=== PATIENT | male | born 1980 | race Caucasian/White ===

== ENCOUNTER 2022-07-14 11:57 | Outpatient (CLI) | payer BC, SELFPAY | END 2022-07-14 11:58 | disposition home or self-care (01) | LOC: AMB 07-18 11:02 | PROVIDERS: Visit Provider Internal Medicine | DX: F31.9 Bipolar disorder, unspecified (principal) | CPT/HCPCS: A0425; A0427 ==

== ENCOUNTER 2022-07-14 12:51 | Emergency (ER) | payer BC, SELFPAY ==
[2022-07-14] VITALS (28 sets, daily range): BP systolic 111–137; BP diastolic 68–107; PULSE 72–109; RESP 10–20; TEMP 36.7; O2SAT 81–99; BMI 31.0
[2022-07-14] MEDS: LORazepam 2 MG/ML inj 0.5 MG IVP (12:58)
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
[2022-07-14 13:30] LABS: Basophils Absolute Auto 0.02 K/uL (0.00-0.30); Basophils Percent Auto 0.4 % (0.0-3.0); Eosinophils Absolute Auto 0.15 K/uL (0.00-0.50); Eosinophils Percent Auto 2.8 % (0.0-7.0); Hematocrit 45.9 % (37.0-53.0); Hemoglobin* 15.2 gm/dL (13.5-17.5); Immature Granulocytes Abs Auto 0.04 K/uL (0.00-0.30); Immature Granulocytes Pct Auto 0.7 %; Lymphocytes Absolute Auto 1.75 K/uL (0.90-2.90); Lymphocytes Percent Auto 32.4 % (20-44); Mean Corpuscular HGB Conc 33 gm/dL (32-36); Mean Corpuscular Hemoglobin 27 pg (26-34); Mean Corpuscular Volume 82 fL (80-100); Monocytes Percent Auto 9.3 % (0.0-11.0); Neutrophils Absolute Auto 2.94 K/uL (1.7-7.0); Neutrophils Percent Auto 54.4 % (42.0-72.0); Platelet Count* 189 K/uL (140-440); Red Blood Count 5.58 m/uL (4.30-5.90)
[2022-07-14 13:34] LABS: Slide Review Reflex No
[2022-07-14 13:35] LABS: Albumin* 4.6 g/dL (3.3-5.0); Chloride* 105 mmol/L (96-114)
[2022-07-14 13:36] LABS: Potassium* 3.7 mmol/L (3.6-5.1); Sodium* 138 mmol/L (135-149)
[2022-07-14 13:38] LABS: Alanine Aminotransferase* 54 U/L (4-50); Alkaline Phosphatase* 120 U/L (40-150); Aspartate Amino Transferase* 41 U/L (12-35); Bilirubin Total* 0.6 mg/dL (0.1-1.5); Blood Urea Nitrogen* 15 mg/dL (5-24); Carbon Dioxide* 24 mmol/L (20-32); Creatinine* 0.7 mg/dL (0.5-1.5); Est. Creatinine Clearance* 140.28; Estimated Glomerular Filt Rate 119 ml/min; Glucose* 137 mg/dL (60-115); Total Protein* 7.8 g/dL (6.0-8.3)
[2022-07-14 13:39] LABS: Calcium* 9.2 mg/dL (8.4-10.6)
[2022-07-14 13:41] LABS: Acetaminophen* < 10.0 ug/mL (10.0-30.0); Ethanol* < 0.01 % (0.01-0.03); Salicylate* < 1.0 mg/dL (1.0-10)
[2022-07-14] MEDS: 0.9 % SODIUM CHLORIDE 1000 ml 1,000 ML IV (13:48)
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
[2022-07-14 14:55] LABS: Appearance Urine Clear (Clear); Bilirubin Urine Negative (Negative); Blood Urine Negative (Negative); Color Urine Yellow (Yellow); Glucose Urine Negative (Negative); Ketones Urine Negative (Negative); Leukocyte Esterase Urine Negative (Negative); Nitrite Urine Negative (Negative); Protein Urine Negative (Negative); Specific Gravity Urine 1.025 (1.000-1.030); Urobilinogen Urine 0.2 (0.2-1.0)
[2022-07-14 14:59] LABS: Amphetamine Screen Urine Negative (Negative); Barbiturate Screen Urine Negative (Negative); Benzodiazepines Screen Urine Negative (Negative); Cannabinoid Screen Urine Negative (Negative); Cocaine Screen Urine Negative (Negative); Methadone Screen Urine Negative (Negative); Methamphetamines Screen Urine Negative (Negative); Opiate Screen Urine Negative (Negative); Oxycodone Screen Urine Negative (Negative); Phencyclidine Screen Urine Negative (Negative); Tricyclic Antidepressant Urine Negative (Negative)
[2022-07-14 15:25] LABS: RBC Urine 0-2 (0-2); WBC Urine 0-2 (0-5)
--- NOTE | 2022-07-14 16:49 | PC.NURSE ---
Addendum entered by Teto Bryan RN 07/15/22 04:29: left message to Fe about disposition of Spencer Larsen. Original Note: spoke to [facility] high risk case manager Fe [phone], she is hoping we place pt, she was at the appointment today at [facility] and witnessed his behavior today, she would like an update as to where he is placed and we can leave a voicemail
--- NOTE | 2022-07-14 17:01 | PC.NURSE ---
Julian Miramontes pt is on a Oseguera
[2022-07-14 18:22] LABS: SARS PCR* Negative SARS-CoV-2 (Negative)
[2022-07-14] MEDS: ACETAMINOPHEN 500 MG TABLET 1000 MG PO (18:25)
--- NOTE | 2022-07-14 19:00 | ED.NURSE ---
o2 dc'd. patient satting 96% room air.
--- NOTE | 2022-07-14 20:38 | ED.NURSE ---
mother and father are here to see son about dc'ing back home. Dr. Rodarte is in the room. lang interpreter via Ipad.
--- NOTE | 2022-07-14 21:40 | ED.NURSE ---
Ativan tablet handed to mother of patient and directions for use were reviewed.
== END 2022-07-14 21:44 | disposition home or self-care (01) ==
PROVIDERS: Emergency Provider Family Medicine
DX: F20.9 Schizophrenia, unspecified (principal); Z72.820 Sleep deprivation
CPT/HCPCS: 36415; 80053; 80143; 80179; 80306; 81001; 82077; 85025; 87635; 94761; 96374; 99284; A9270; J2060; J7030

== ENCOUNTER 2023-09-03 20:49 | Outpatient (CLI) | payer BC, SELFPAY | END 2023-09-03 20:50 | disposition home or self-care (01) | LOC: SLEEP 20:53 | PROVIDERS: PCP Physician Assistant Medical; Visit Provider Internal Medicine | DX: G47.33 Obstructive sleep apnea (adult) (pediatric) (principal) | CPT/HCPCS: 95810 ==